=== PATIENT | male | born 1985 | race African-American/Black ===

== ENCOUNTER → 2019-12-22 | Outpatient (CLI) | payer OTHER ==
[~2019-12-22] MED LIST: ALEVE220 M1 PO; ALEVE220 MG PO; NORCO 5-325 TA1 EAC1 PO; TRAMADOL 50 MG50 MG PO
== END ==
LOC: M.LAB 17:38
PROVIDERS: ATTEND Orthopaedic Surgery
DX: Z01.812 Encounter for preprocedural laboratory examination (principal); M94.9 Disorder of cartilage, unspecified; M89.8X8 Other specified disorders of bone, other site

== ENCOUNTER → 2019-12-28 | Day surgery (SDC) | payer OTHER ==
--- NOTE | ~2019-12-28 | OP ---
[address] [address] OPERATIVE REPORT Name: GUILLE MCKENNA Room: [facility]#: [id number] Admission: 12/28/19 Attend Phys: Matias Starr II Discharge: Date of : 83 Report #: [id number] THIS REPORT FOR: //name// cc: JOE Broderick family physician/PCP JOE - Meggan family physician/PCP ~ THIS REPORT FOR: //name// CC: JOE physician/PCP Matias Starr DATE OF SERVICE: 12/28/2019 PREOPERATIVE DIAGNOSIS: Right ankle osteochondral defect. POSTOPERATIVE DIAGNOSES: 1. Right ankle osteochondral defect. 2. Extensive cellulitis. PROCEDURES PERFORMED: 1. Right ankle arthroscopic surgery with osteochondral drilling of the talus. 2. Extensive debridement of ankle joint. SURGEON: Matias Starr II, DO VIDEO GAME TECHNICIAN: FLAQUITO Gomez. ANESTHESIA: Per operative record. ESTIMATED BLOOD LOSS: Minimal. ANTIBIOTICS: Per operative record. DRAINS: None. COMPLICATIONS: None. CONDITION OF THE PATIENT: Stable to recovery room. DESCRIPTION OF PROCEDURE: The patient was taken to the operative suite and placed supine on the operating table, given appropriate anesthesia. The patient's affected ankle was sterilely prepped and draped. Surgery began by anteromedial and anterolateral incision over the ankle joint. It was bluntly dissected down to the joint and the arthroscope was advanced. There was shown to be extensive synovitis throughout the ankle along the medial, lateral as well as anterior and posterior compartments of the ankle joint. Utilizing a shaver, an extensive debridement was performed throughout all 4 quadrants of the ankle. [address] [address] OPERATIVE REPORT Name: CONNOR MCKENNAPatricio Leonard Room: [facility]#: [id number] Admission: 12/28/19 Attend Phys: Matias Starr II Discharge: Date of : 83 Report #: [id number] There was shown to be a small osteochondral defect noted to the lateral talus. Utilizing a 45-degree pick, this was taken down to bleeding bone in a good-like fashion over the osteochondral defect. Excess bone and cartilage debris was also removed utilizing a shaver. Final irrigation was then performed of the ankle. Final images were taken. The ankle was then drained of arthroscopic fluid, closed with 4-0 nylon in simple fashion. Dermabond and sterile dressing applied. The patient transported to recovery room in stable condition. Counts were correct throughout the procedure. By: [id number] Starr II, DO /nt
== END | disposition home or self-care (01) ==
LOC: M.SUR 07:19
DX: M95.8 Other specified acquired deformities of musculoskeletal system (principal); L03.115 Cellulitis of right lower limb; M94.9 Disorder of cartilage, unspecified; M25.471 Effusion, right ankle; M89.9 Disorder of bone, unspecified; M19.90 Unspecified osteoarthritis, unspecified site; G43.909 Migraine, unspecified, not intractable, without status migrainosus; Z98.890 Other specified postprocedural states; Z79.899 Other long term (current) drug therapy